=== PATIENT | female | born 1995 | race American Indian/Alaskan Native ===

== ENCOUNTER 2017-10-03 09:16 | Emergency (ER) | payer MEDICAID ==
[2017-10-03 09:53] VITALS: BP 125/77
--- NOTE | 2017-10-03 12:52 | Emergency Department Report ---
HPI - General Chief Complaint: Headache Time Seen by Provider: 10/03/17 12:33 - HPI HPI: 22-year-old female presents with a 5-6 day history of subjective fever, chills, sweats, cold feet, significant rhinorrhea and some headaches that she says are migraines. She has never been diagnosed with migraine headaches and the headaches appear to be in the frontal region. She also feels that she has some facial and/or sinus congestion. She denies any cough, chest pain, shortness of breath, abdominal pain, vaginal bleeding, dysuria. She has not taken anything for her symptoms by presentation. She goes to [facility] for primary care needs. No recent travel or sick contacts at home. ED Past Medical Hx - Past Medical History Previous Medical History?: No - Surgical History Past Surgical History?: No - Social History Smoking Status: Never Smoker Substance Use Type: None - Medications Home Medications: Home Medications Medication Instructions Recorded Confirmed Last Taken Type Azithromycin [Zithromax Z-CHAYO] 250 mg PO DAILY #6 tab 10/03/17 Unknown Rx Fluticasone [Flonase] 1 spray NS QDAY #1 bottle 10/03/17 Unknown Rx Pseudoephedrine HCl [Sudafed 240 mg PO QDAY #7 tab.er.24h 10/03/17 Unknown Rx 24-Hour] ED Review of Systems ROS: Stated complaint: SINUSES Other details as noted in HPI Comment: All other systems reviewed and negative Constitutional: chills, fever (subjective) Eyes: denies: eye pain, eye discharge, vision change ENT: congestion. denies: throat pain Respiratory: denies: cough, shortness of breath, wheezing Cardiovascular: denies: chest pain, palpitations Gastrointestinal: denies: abdominal pain, nausea, diarrhea Genitourinary: denies: urgency, dysuria, discharge Musculoskeletal: denies: back pain, joint swelling, arthralgia Skin: denies: rash, lesions Neurological: headache. denies: numbness, paresthesias Physical Exam - Physical Exam Vital Signs: Vital Signs 10/03/17 09:51 Temperature 98.7 F Pulse Rate 74 Respiratory 16 Rate Blood Pressure 125/77 O2 Sat by Pulse 100 Oximetry Physical Exam: GENERAL: The patient is well-developed well-nourished. HENT: Normocephalic. Atraumatic. Patient has moist mucous membranes. Oropharynx is clear. Boggy nasal passages. EYES: Extraocular motions are intact. Pupils equal reactive to light bilaterally. NECK: Supple. Trachea is midline. CHEST/LUNGS: Clear to auscultation. There is no respiratory distress noted. HEART/CARDIOVASCULAR: Regular. There is no tachycardia. There is no murmur. ABDOMEN: Abdomen is soft, nontender. Patient has normal bowel sounds. There is no abdominal distention. SKIN: Skin is warm and dry. NEURO: The patient is awake, alert, and oriented. The patient is cooperative. The patient has no focal neurologic deficits. The patient has normal speech. MUSCULOSKELETAL: There is no tenderness or deformity. There is no limitation range of motion. There is no evidence of acute injury. ED Course Vital Signs 10/03/17 09:51 Temperature 98.7 F Pulse Rate 74 Respiratory 16 Rate Blood Pressure 125/77 O2 Sat by Pulse 100 Oximetry ED Medical Decision Making - Medical Decision Making Patient appears most consistent with a sinus infection and/or sinusitis. I believe her frontal headaches are caused by that. Vital signs stable including being afebrile and there is no tachycardia. There is no cough heard during examination. Heart and lungs are normal auscultation. I feel that the patient is safe for discharge home at this time as she has good follow-up with some slight medical. She'll be given a nasal decongestant, a decongestant pill and we put her on a Z-Chayo. If she takes these meds and does not have any relief and still continues to have any significant headache, she will return to the emergency department. The same can be said if she has any worsening of her symptoms or any acute distress. Otherwise she is to follow-up with her PCP at [facility] for further examination. - Differential Diagnosis URI, sinusitis, influenza, anemia Critical Care Time: No Critical care attestation.: If time is entered above; I have spent that time in minutes in the direct care of this critically ill patient, excluding procedure time. ED Disposition Clinical Impression: Sinusitis Qualifiers: Sinusitis location: unspecified location Chronicity: acute Recurrence: not specified as recurrent Qualified Code(s): J01.90 - Acute sinusitis, unspecified Disposition: - TO HOME OR SELFCARE Is pt being admited?: No Condition: Stable Instructions: Sinusitis (ED) Additional Instructions: Please follow-up with your primary care physician. Return to the emergency Department with any worsening of your symptoms or any acute distress. Prescriptions: Azithromycin [Zithromax Z-CHAYO] 250 mg PO DAILY #6 tab Fluticasone [Flonase] 1 spray NS QDAY #1 bottle Pseudoephedrine HCl [Sudafed 24-Hour] 240 mg PO QDAY #7 tab.er.24h Referrals: [facility] [Outside] - 3-5 Days Time of Disposition: 12:55
== END 2017-10-03 13:08 | disposition home or self-care (01) ==
LOC: ED 09:16
DX: J01.90 Acute sinusitis, unspecified (principal); Z88.1 Allergy status to other antibiotic agents
CPT/HCPCS: 99282